=== PATIENT | female | born 1975 | race Caucasian/White ===

== ENCOUNTER 2019-02-24 09:14 | Day surgery (SDC) | payer OTHER ==
[~2019-02-24] VITALS: Ht 162.6 cm; Wt 61.4 kg
[~2019-02-24 09:14] MED LIST: NO MEDS.
[2019-02-24 09:54] VITALS: Ht 162.6 cm; Wt 61.4 kg
[2019-02-24] MEDS ORDERED: LIDOCAINE 4% SOLUTION 50 ML BTL ONE (10:06)
[2019-02-24 10:07] VITALS: BP 138/80; PULSE 82; RESP 18
[2019-02-24] MEDS ORDERED: FENTAnyl 50 MCG/ML VIAL ONE (10:46)
[2019-02-24] MEDS ORDERED: MIDAZOLAM 1 MG/ML 2 ML INJ ONE ×2 (10:46)
[2019-02-24 11:05] VITALS: BP 111/74; RESP 16
== END 2019-02-24 12:35 | disposition home or self-care (01) ==
LOC: GIL 09:14
PROVIDERS: ATTEND Internal Medicine Gastroenterology
DX: Z12.11 Encounter for screening for malignant neoplasm of colon (principal); K64.4 Residual hemorrhoidal skin tags; K57.30 Diverticulosis of large intestine without perforation or abscess without bleeding; K29.00 Acute gastritis without bleeding
CPT/HCPCS: 43235; 45378; 84703; 88305; 88312; J2250; J3010; Z7610